=== PATIENT | female | born 1980 | race Caucasian/White ===

== ENCOUNTER → 2016-08-30 | Emergency (ER) | payer MEDICAID ==
[~2016-08-30] MED LIST: ADDERALL 20 MG20 MG PO; BUTRANS1 EAC1 TOP; DESYREL50 MG PO; FLONASE 50 MCG/16 GM NOSE; ISONIAZID300 MG PO; MOTRIN800 MG PO; NEURONTIN600 MG PO; PEPCID20 MG PO; PROTONIX40 MG PO; SINGULAIR10 MG PO; TYLENOL/COD#31 TAB PO; VITAMIN B-650 MG PO; ZANAFLEX4 MG PO
== END | disposition disaster alternative care site (69) ==
LOC: GAMB 20:36
DX: T14.90 Injury, unspecified (principal); M54.2 Cervicalgia; G89.29 Other chronic pain; V49.9XXA Car occupant (driver) (passenger) injured in unspecified traffic accident, initial encounter